=== PATIENT | male | born 1945 | race Caucasian/White ===

== ENCOUNTER 2022-09-21 12:23 | Inpatient (IN) | payer OTHER, MEDICARE, SELFPAY ==
--- NOTE | ~2022-09-21 | XR_ITS ---
EXAMINATION: XR CHEST CLINICAL INFORMATION: Shortness of breath COMPARISON: Chest x-ray on 05/10/2016 TECHNIQUE: 2 views of the chest were obtained. FINDINGS: The cardiac mediastinal silhouette is normal. There is mild chronic interstitial disease. No areas of consolidation. No pleural effusions. XR/XR chest 2V IMPRESSION: No acute disease.
--- NOTE | 2022-09-21 12:33 | ED.SOB ---
HPI - SOB/Dyspnea General Chief Complaint: Upper Respiratory Symptoms <SHYANNE Walls - Last Filed: 09/21/22 12:39> Stated Complaint: diff breathing <SHYANNE Walls - Last Filed: 09/21/22 12:39> Time Seen by Provider: 09/21/22 12:39 <SHYANNE Walls - Last Filed: 09/21/22 12:39> Source: patient <SHYANNE Fuller Last Filed: 09/21/22 14:18> Mode of arrival: ambulatory <SHYANNE Fuller Last Filed: 09/21/22 14:18> Limitations: no limitations <SHYANNE Fuller Last Filed: 09/21/22 14:18> History of Present Illness HPI Narrative: 77 yo male with history of COPD, active smoker, history of AZ in the past who presents to the ER for evaluation of SOB for the last 2 weeks. He states he was seen at Urgent Care on 09/10 where he had an x-ray showed RLL infiltrate for which he was prescribed antibiotics and prednisone. He completed the course and has been using his nebulizer machine at home with no improvement in his SOB. He has a chronically productive cough but it has worsened. Phlegm clear to light yellow. He states his breathing is worse with laying, he has been sleeping in his recliner. No HOPKINS, chest pain, fever, chills, N/V/D or abdominal pain. No known sick contacts. No hx CHF and no LE edema. He just did a neb treatment 1 hour [employer] but still feels SOB. Spo2 90% on room air. <SHYANNE Fuller - Last Filed: 09/21/22 14:18> MD elicited complaint: shortness of breath <SHYANNE Fuller Last Filed: 09/21/22 14:18> Pertinent past history: COPD and pneumonia <SHYANNE Fuller Last Filed: 09/21/22 14:18> Onset (ago): week(s) (2) <SHYANNE Fuller Last Filed: 09/21/22 14:18> Context: recent illness <SHYANNE Fuller Last Filed: 09/21/22 14:18> Timing: progressively worsening <SHYANNE Fuller - Last Filed: 09/21/22 14:18> Severity: moderate <SHYANNE Fuller - Last Filed: 09/21/22 14:18> Exacerbating factors: lying flat <SHYANNE Fuller - Last Filed: 09/21/22 14:18> Relieving factors: rest and bronchodilators <SHYANNE Fuller - Last Filed: 09/21/22 14:18> Known history of: COPD <SHYANNE Fuller - Last Filed: 09/21/22 14:18> Associated symptoms: cough, wheezing, sputum production, orthopnea and chest congestion <SHYANNE Fuller - Last Filed: 09/21/22 14:18> Treatment prior to arrival: bronchodilator <SHYANNE Fuller - Last Filed: 09/21/22 14:18> Related Data Home oxygen amount: none <SHYANNE Fuller - Last Filed: 09/21/22 14:18> Allergies/Adverse Reactions: Allergies Allergy/AdvReac Type Severity Reaction Status Date / Time No Known Allergies Allergy Verified 09/21/22 12:34 [No Known Allergies*] <SHYANNE Walls - Last Filed: 09/21/22 12:39> Review of Systems Review of Systems: Yes all other systems are reviewed and are negative <SHYANNE Fuller - Last Filed: 09/21/22 14:18> [facility] Social History Social History: Social History Advance Directives: No Advance Directives Information Provided: Yes <SHYANNE Walls - Last Filed: 09/21/22 12:39> Physical Exam Vital Signs: Vital Signs: Last Vital Signs Temp 98 F 09/21/22 12:34 Pulse 91 09/21/22 14:09 Resp 20 09/21/22 14:09 BP 142/70 H 09/21/22 14:09 Pulse Ox 92 09/21/22 14:09 O2 Del Method Nasal Cannula 09/21/22 14:09 O2 Flow Rate 2 09/21/22 14:09 BMI result Body Mass Index 23.6 <SHYANNE Walls Last Filed: 09/21/22 12:39> Vital Signs: Last Vital Signs Temp 98 F 09/21/22 12:34 Pulse 91 09/21/22 14:09 Resp 20 09/21/22 14:09 BP 142/70 H 09/21/22 14:09 Pulse Ox 92 09/21/22 14:09 O2 Del Method Nasal Cannula 09/21/22 14:09 O2 Flow Rate 2 09/21/22 14:09 BMI result Body Mass Index 23.6 <SHYANNE Fuller - Last Filed: 09/21/22 14:18> Appearance: Alert. Oriented X3. No acute distress. Head: normocephalic, atraumatic. Eyes: Pupils equal, round and reactive to light. ENT: Pharynx normal. No tonsillar swelling or exudate. Neck: Normal inspection. Neck supple. CVS: Normal heart rate and rhythm. Pulses normal. Respiratory: No respiratory distress. Able to speak in complete sentences. BS diminished at bilateral bases with expiratory wheezes throughout, prolonged expiratory phase. Abdomen: Soft and nontender. +BS x4 Skin: Skin warm and dry. Normal skin color. Normal skin turgor. No rashes. Extremities: No lower extremity edema. No joint swelling. Neuro/psych: Oriented X 3. No motor deficit. No sensory deficit. CN II-XII intact. Normal speech and cognition. <SHYANNE Fuller - Last Filed: 09/21/22 14:18> Course Course Course Narrative: RME: 77yo M w/PMHx COPD, DM, HTN, [place] c/o worsening, SOB, chest tightness x 3 weeks. Was seen at urgent care on 09/10 x-ray showed possible infiltrate to right lower lobe, finished course of Azithromycin & Amoxicillin and Prednisone without relief Inspiratory wheeze and diminished lung sounds bibasilarly. Patient is sating 89-90% on room air, coarse cough noted EKG, labs including lactic/blood cultures, CXR, DuoNebs, IV Solu-Medrol ordered Full HPI, ROS and PE to be performed by primary ED provider. <SHYANNE Walls - Last Filed: 09/21/22 12:39> Reevaluation(s) Reevaluation #1: patient continues to have coughing fits. He is saturating 92-93% on 2 L nasal cannula. He feels the same after 1st breathing treatment. His lung sounds remain diminished at the bases and expiratory wheezes in his middle and upper lung sounds. He is not in any respiratory distress. Will plan for admission for treatment of COPD exacerbation. <SHYANNE Fuller - Last Filed: 09/21/22 14:18> Time: 14:16 <SHYANNE Fuller - Last Filed: 09/21/22 14:18> Medications Administered Generic Name Dose Route Start Last Admin Trade Name Freq PRN Reason Stop Dose Admin Doxycycline Hyclate 100 mg/ 250 mls @ 166.67 mls/hr 09/21/22 13:31 09/21/22 13:44 Sodium Chloride IV 09/21/22 15:00 166.67 mls/hr ONCE ONE Administration Discontinued Medications Generic Name Dose Route Start Last Admin Trade Name Freq PRN Reason Stop Dose Admin Albuterol Sulfate 2.5 mg/ 0 mg 09/21/22 12:35 09/21/22 13:21 Albuterol/Ipratropium 3 ml INHALE 09/21/22 12:36 2.5 each ONCE ONE Administration Guaifenesin 1,200 mg 09/21/22 13:31 09/21/22 13:45 Guaifenesin La 600 Mg Tab.Er.12h PO 09/21/22 13:32 1,200 mg ONCE ONE Administration Methylprednisolone Sodium Succinate 125 mg 09/21/22 12:35 09/21/22 12:58 Methylprednisolone Sod Succ 125 Mg/2 Ml Vial IVPUSH 09/21/22 12:36 125 mg ONCE ONE Administration <SHYANNE Walls - Last Filed: 09/21/22 12:39> Medications Administered Generic Name Dose Route Start Last Admin Trade Name Freq PRN Reason Stop Dose Admin Doxycycline Hyclate 100 mg/ 250 mls @ 166.67 mls/hr 09/21/22 13:31 09/21/22 13:44 Sodium Chloride IV 09/21/22 15:00 166.67 mls/hr ONCE ONE Administration Discontinued Medications Generic Name Dose Route Start Last Admin Trade Name Freq PRN Reason Stop Dose Admin Albuterol Sulfate 2.5 mg/ 0 mg 09/21/22 12:35 09/21/22 13:21 Albuterol/Ipratropium 3 ml INHALE 09/21/22 12:36 2.5 each ONCE ONE Administration Guaifenesin 1,200 mg 09/21/22 13:31 09/21/22 13:45 Guaifenesin [place] 600 Mg Tab.Er.12h PO 09/21/22 13:32 1,200 mg ONCE ONE Administration Methylprednisolone Sodium Succinate 125 mg 09/21/22 12:35 09/21/22 12:58 Methylprednisolone Sod Succ 125 Mg/2 Ml Vial IVPUSH 09/21/22 12:36 125 mg ONCE ONE Administration <SHYANNE Fuller Last Filed: 09/21/22 14:18> Medical Decision Making Medical Decision Making MDM Narrative: 77-year-old male with history of COPD, active smoker, not on oxygen, 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 He is hypoxic to 90% on arrival but in no respiratory distress. He has diffuse wheezing with diminished breath sounds at the bases. concern for outpatient failure when will require admission. chest x-ray does not show any evidence of pneumonia. He does have a leukocytosis of 15.6 but has been on prednisone lately. He is lactic acid is normal. He is not febrile or tachycardic. He is being treated for acute COPD exacerbation with doxycycline, mucolytics, bronchodilators. He is saturating 92% on 2 L nasal cannula. Will plan for admission. Patient updated on plan of care and agrees. <SHYANNE Fuller - Last Filed: 09/21/22 14:18> Differential Diagnosis Differential Diagnoses: The differential diagnosis associated with the presentation includes <SHYANNE Fuller Last Filed: 09/21/22 14:18> acute COPD exacerbation, acute CHF exacerbation, acute bronchitis, CAP, aspiration pneumonia, less likely PE or ACS <SHYANNE Fuller Last Filed: 09/21/22 14:18> Admission/Observation Consideration of admission/observation: Escalation of care including admission/observation considered <SHYANNE Fuller Last Filed: 09/21/22 14:18> failed outpatient tx <SHYANNE Fuller Last Filed: 09/21/22 14:18> Consult Healthcare Provider Management of the patient was discussed with: Hospitalist <SHYANNE Fuller Last Filed: 09/21/22 14:18> Lab Data [facility] Lab Attestation statement: I reviewed the patient's lab results. <SHYANNE Fuller - Last Filed: 09/21/22 14:18> Leukocytosis, mild hyponatremia <SHYANNE Fuller - Last Filed: 09/21/22 14:18> Result Diagrams: 09/21/22 12:52 09/21/22 12:52 <SHYANNE Walls - Last Filed: 09/21/22 12:39> Labs: Lab Results 09/21/22 09/21/22 09/21/22 Range/Units 12:52 12:52 12:52 WBC 15.6 H (4.8-10.8) X10*3/uL RBC 5.02 (4.60-5.80) X10*6/uL Hgb 16.1 (14.0-18.0) g/dl Hct 48.0 (42.0-52.0) % MCV 95.6 (80.0-98.0) fL MCH 32.1 (27.0-33.0) pg MCHC 33.5 (31.0-36.0) g/dl RDW 13.3 (11.0-16.0) % Plt Count 396 (160-400) X10*3/uL MPV 8.5 L (9.4-12.4) fL Immature Gran % (Auto) 0.7 H (0.0-0.4) % Neut % (Auto) 74.6 H (45-73) % Lymph % (Auto) 14.9 L (20-40) % [place] % (Auto) 6.0 (2-11) % Eos % (Auto) 3.4 (0-4) % Baso % (Auto) 0.4 (0-2) % Lymph # (Auto) 2.3 (1.2-4.9) X10*3/uL [place] # (Auto) 0.9 (0.1-1.2) X10*3/uL Eos # (Auto) 0.5 H (0.0-0.4) X10*3/uL Baso # (Auto) 0.1 (0.0-0.2) X10*3/uL Abs Immat Gran (auto) 0.11 H (0.00-0.03) X10*3/uL Absolute Neuts (auto) 11.6 H (2.0-8.3) x10*3/uL Absolute Nucleated RBC 0.000 (0.0-0.012) X10*3/uL Nucleated RBC % (auto) 0.0 (0.0-0.2) /100WBC PT (10.0-13.1) SEC INR (0.9-1.1) Sodium 131 L (135-145) mmol/L Potassium 5.0 (3.3-5.1) mmol/L Chloride 94 L (96-108) mmol/L Carbon Dioxide 27 (22-29) mmol/L Anion Gap 15 (12-20) BUN 8 L (9-16) mg/dL Creatinine 0.96 (0.5-1.4) mg/dL Estim Creat Clear Calc 62.3 Estimated GFR > 60 Random Glucose 180 H (60-115) mg/dL Lactic Acid 1.9 (0.5-2.0) mmol/L Calcium 9.7 (8.4-10.2) mg/dL Total Bilirubin 0.6 (0.0-1.0) mg/dL Direct Bilirubin 0.2 (0.0-0.5) mg/dL AST 19 (5-37) U/L ALT 34 (0-40) U/L Alkaline Phosphatase 98 (39-117) U/L Troponin I High Sens (<3.5-35.0) ng/L B-Natriuretic Peptide (<100) pg/mL Total Protein 7.6 (6.5-8.0) g/dL Albumin 5.0 (3.5-5.0) g/dL 09/21/22 09/21/22 09/21/22 Range/Units 12:52 12:52 13:01 WBC (4.8-10.8) X10*3/uL RBC (4.60-5.80) X10*6/uL Hgb (14.0-18.0) g/dl Hct (42.0-52.0) % MCV (80.0-98.0) fL MCH (27.0-33.0) pg MCHC (31.0-36.0) g/dl RDW (11.0-16.0) % Plt Count (160-400) X10*3/uL MPV (9.4-12.4) fL Immature Gran % (Auto) (0.0-0.4) % Neut % (Auto) (45-73) % Lymph % (Auto) (20-40) % [place] % (Auto) (2-11) % Eos % (Auto) (0-4) % Baso % (Auto) (0-2) % Lymph # (Auto) (1.2-4.9) X10*3/uL [place] # (Auto) (0.1-1.2) X10*3/uL Eos # (Auto) (0.0-0.4) X10*3/uL Baso # (Auto) (0.0-0.2) X10*3/uL Abs Immat Gran (auto) (0.00-0.03) X10*3/uL Absolute Neuts (auto) (2.0-8.3) x10*3/uL Absolute Nucleated RBC (0.0-0.012) X10*3/uL Nucleated RBC % (auto) (0.0-0.2) /100WBC PT 12.0 (10.0-13.1) SEC INR 1.0 (0.9-1.1) Sodium (135-145) mmol/L Potassium (3.3-5.1) mmol/L Chloride (96-108) mmol/L Carbon Dioxide (22-29) mmol/L Anion Gap (12-20) BUN (9-16) mg/dL Creatinine (0.5-1.4) mg/dL Estim Creat Clear Calc Estimated GFR Random Glucose (60-115) mg/dL Lactic Acid (0.5-2.0) mmol/L Calcium (8.4-10.2) mg/dL Total Bilirubin (0.0-1.0) mg/dL Direct Bilirubin (0.0-0.5) mg/dL AST (5-37) U/L ALT (0-40) U/L Alkaline Phosphatase (39-117) U/L Troponin I High Sens 6.0 (<3.5-35.0) ng/L B-Natriuretic Peptide 21 (<100) pg/mL Total Protein (6.5-8.0) g/dL Albumin (3.5-5.0) g/dL <SHYANNE Walls - Last Filed: 09/21/22 12:39> Lab Results 09/21/22 09/21/22 09/21/22 Range/Units 12:52 12:52 12:52 WBC 15.6 H (4.8-10.8) X10*3/uL RBC 5.02 (4.60-5.80) X10*6/uL Hgb 16.1 (14.0-18.0) g/dl Hct 48.0 (42.0-52.0) % MCV 95.6 (80.0-98.0) fL MCH 32.1 (27.0-33.0) pg MCHC 33.5 (31.0-36.0) g/dl RDW 13.3 (11.0-16.0) % Plt Count 396 (160-400) X10*3/uL MPV 8.5 L (9.4-12.4) fL Immature Gran % (Auto) 0.7 H (0.0-0.4) % Neut % (Auto) 74.6 H (45-73) % Lymph % (Auto) 14.9 L (20-40) % [place] % (Auto) 6.0 (2-11) % Eos % (Auto) 3.4 (0-4) % Baso % (Auto) 0.4 (0-2) % Lymph # (Auto) 2.3 (1.2-4.9) X10*3/uL [place] # (Auto) 0.9 (0.1-1.2) X10*3/uL Eos # (Auto) 0.5 H (0.0-0.4) X10*3/uL Baso # (Auto) 0.1 (0.0-0.2) X10*3/uL Abs Immat Gran (auto) 0.11 H (0.00-0.03) X10*3/uL Absolute Neuts (auto) 11.6 H (2.0-8.3) x10*3/uL Absolute Nucleated RBC 0.000 (0.0-0.012) X10*3/uL Nucleated RBC % (auto) 0.0 (0.0-0.2) /100WBC PT (10.0-13.1) SEC INR (0.9-1.1) Sodium 131 L (135-145) mmol/L Potassium 5.0 (3.3-5.1) mmol/L Chloride 94 L (96-108) mmol/L Carbon Dioxide 27 (22-29) mmol/L Anion Gap 15 (12-20) BUN 8 L (9-16) mg/dL Creatinine 0.96 (0.5-1.4) mg/dL Estim Creat Clear Calc 62.3 Estimated GFR > 60 Random Glucose 180 H (60-115) mg/dL Lactic Acid 1.9 (0.5-2.0) mmol/L Calcium 9.7 (8.4-10.2) mg/dL Total Bilirubin 0.6 (0.0-1.0) mg/dL Direct Bilirubin 0.2 (0.0-0.5) mg/dL AST 19 (5-37) U/L ALT 34 (0-40) U/L Alkaline Phosphatase 98 (39-117) U/L Troponin I High Sens (<3.5-35.0) ng/L B-Natriuretic Peptide (<100) pg/mL Total Protein 7.6 (6.5-8.0) g/dL Albumin 5.0 (3.5-5.0) g/dL 09/21/22 09/21/22 09/21/22 Range/Units 12:52 12:52 13:01 WBC (4.8-10.8) X10*3/uL RBC (4.60-5.80) X10*6/uL Hgb (14.0-18.0) g/dl Hct (42.0-52.0) % MCV (80.0-98.0) fL MCH (27.0-33.0) pg MCHC (31.0-36.0) g/dl RDW (11.0-16.0) % Plt Count (160-400) X10*3/uL MPV (9.4-12.4) fL Immature Gran % (Auto) (0.0-0.4) % Neut % (Auto) (45-73) % Lymph % (Auto) (20-40) % [place] % (Auto) (2-11) % Eos % (Auto) (0-4) % Baso % (Auto) (0-2) % Lymph # (Auto) (1.2-4.9) X10*3/uL [place] # (Auto) (0.1-1.2) X10*3/uL Eos # (Auto) (0.0-0.4) X10*3/uL Baso # (Auto) (0.0-0.2) X10*3/uL Abs Immat Gran (auto) (0.00-0.03) X10*3/uL Absolute Neuts (auto) (2.0-8.3) x10*3/uL Absolute Nucleated RBC (0.0-0.012) X10*3/uL Nucleated RBC % (auto) (0.0-0.2) /100WBC PT 12.0 (10.0-13.1) SEC INR 1.0 (0.9-1.1) Sodium (135-145) mmol/L Potassium (3.3-5.1) mmol/L Chloride (96-108) mmol/L Carbon Dioxide (22-29) mmol/L Anion Gap (12-20) BUN (9-16) mg/dL Creatinine (0.5-1.4) mg/dL Estim Creat Clear Calc Estimated GFR Random Glucose (60-115) mg/dL Lactic Acid (0.5-2.0) mmol/L Calcium (8.4-10.2) mg/dL Total Bilirubin (0.0-1.0) mg/dL Direct Bilirubin (0.0-0.5) mg/dL AST (5-37) U/L ALT (0-40) U/L Alkaline Phosphatase (39-117) U/L Troponin I High Sens 6.0 (<3.5-35.0) ng/L B-Natriuretic Peptide 21 (<100) pg/mL Total Protein (6.5-8.0) g/dL Albumin (3.5-5.0) g/dL <SHYANNE Fuller - Last Filed: 09/21/22 14:18> Independent Interpretation I performed an independent interpretation of an: EKG and Plain X-Ray <SHYANNE Fuller - Last Filed: 09/21/22 14:18> Interpretation: CXR reviewed - no infiltrate, agree w/ radiology read EKG - Normal sinus rhythm, ventricular rate 81 beats per minute, normal CT interval, right bundle-branch block, t-wave inversions in V1-V3, no ST segment elevations or depressions. No change from prior in 2016. <SHYANNE Fuller - Last Filed: 09/21/22 14:18> Radiology Impression Discussion of test interpretation with radiology: I have reviewed the radiologist's reading. <SHYANNE Fuller - Last Filed: 09/21/22 14:18> Radiologist Impression: EXAMINATION: XR CHEST CLINICAL INFORMATION: Shortness of breath COMPARISON: Chest x-ray on 05/10/2016 TECHNIQUE: 2 views of the chest were obtained. FINDINGS: The cardiac mediastinal silhouette is normal. There is mild chronic interstitial disease. No areas of consolidation. No pleural effusions. XR/XR chest 2V IMPRESSION: No acute disease. <SHYANNE Fuller - Last Filed: 09/21/22 14:18> External Record Review External record reviewed: Outpatient record, Prior outpatient labs and Prior outpatient radiology <SHYANNE Fuller - Last Filed: 09/21/22 14:18> Prescription Management I considered prescription management with: Antibiotic <SHYANNE Fuller - Last Filed: 09/21/22 14:18> Chronic Conditions Patient?s care impacted by: Other (COPD, active smokr) <SHYANNE Fuller - Last Filed: 09/21/22 14:18> Social Determinants Patient?s care significantly limited by Social Determinants of Health including: Other Social Determinant of Health (active cigarette smoker) <SHYANNE Fuller - Last Filed: 09/21/22 14:18> Critical Care Time Critical Care Time Critical Care Time: Yes <SHYANNE Fuller - Last Filed: 09/21/22 14:18> Total Critical Care Time: 38 <SHYANNE Fuller - Last Filed: 09/21/22 14:18> Attestation: I have personally provided critical care time exclusive of time spent on separately billable procedures. Time includes review of lab data, radiology results, discussion with consultants, and monitoring for potential decompensation. Intervention performed as documented. <SHYANNE Fuller - Last Filed: 09/21/22 14:18> Discharge Plan Discharge Patient Disposition: Admitted As Inpatient <SHYANNE Walls - Last Filed: 09/21/22 12:39>
[2022-09-21 12:34] VITALS: BP 128/64; PULSE 96; RESP 20; TEMP 36.6; O2SAT 90; BMI 23.6
--- NOTE | 2022-09-21 12:35 | ECG_ITS ---
Test Reason : sob Blood Pressure : / mmHG Vent. Rate : 081 BPM Atrial Rate : 081 BPM P-R Int : 156 ms QRS Dur : 122 ms QT Int : 378 ms P-R-T Axes : 058 -43 056 degrees QTc Int : 439 ms Normal sinus rhythm Left axis deviation Right bundle branch block Inferior infarct (cited on or before 10-MAY-2016) Abnormal ECG When compared with ECG of 10-MAY-2016 20:18, No significant change was found Referred By: Susanna Oconnell Electronically Signed By:WILL KYLE
[2022-09-21 12:58] LABS: MANUAL DIFF FLAG NO
[2022-09-21] MEDS: methylPREDNISolone Sod Succ 125 MG/2 ML VIAL IVPUSH (12:58)
[2022-09-21 13:00] LABS: Basophils Absolute Auto 0.1 X10*3/uL (0.0-0.2); Basophils Percent Auto 0.4 % (0-2); Eosinophils Absolute Auto 0.5 X10*3/uL (0.0-0.4); Eosinophils Percent Auto 3.4 % (0-4); Hemoglobin 16.1 g/dl (14.0-18.0); Imm Gran Abs Auto 0.11 X10*3/uL (0.00-0.03); Imm Gran Pct Auto 0.7 % (0.0-0.4); Lymphocytes Absolute Auto 2.3 X10*3/uL (1.2-4.9); Lymphocytes Percent Auto 14.9 % (20-40); Mean Corpuscular HGB Conc 33.5 g/dl (31.0-36.0); Mean Corpuscular Hemoglobin 32.1 pg (27.0-33.0); Mean Corpuscular Volume 95.6 fL (80.0-98.0); Mean Platelet Volume 8.5 fL (9.4-12.4); Monocytes Absolute Auto 0.9 X10*3/uL (0.1-1.2); Neutrophils Absolute Auto 11.6 x10*3/uL (2.0-8.3); Neutrophils Percent Auto 74.6 % (45-73); Platelet Count 396 X10*3/uL (160-400); Red Blood Count 5.02 X10*6/uL (4.60-5.80); Red Cell Distribution Width 13.3 % (11.0-16.0); White Blood Count 15.6 X10*3/uL (4.8-10.8)
[2022-09-21 13:09] LABS: Lactic Acid 1.9 mmol/L (0.5-2.0)
[2022-09-21 13:14] LABS: Alanine Aminotransferase 34 U/L (0-40); Alkaline Phosphatase 98 U/L (39-117); Anion Gap 15 (12-20); Aspartate Amino Transferase 19 U/L (5-37); Bilirubin Direct 0.2 mg/dL (0.0-0.5); Bilirubin Total 0.6 mg/dL (0.0-1.0); Blood Urea Nitrogen 8 mg/dL (9-16); Calcium 9.7 mg/dL (8.4-10.2); Carbon Dioxide 27 mmol/L (22-29); Chloride 94 mmol/L (96-108); Creatinine Clr Calc Pharmacy 62.3; Estimated Glomerular Filt Rate > 60; Glucose Random 180 mg/dL (60-115); Sodium 131 mmol/L (135-145); Total Protein 7.6 g/dL (6.5-8.0)
[2022-09-21 13:19] LABS: B Type Natriuretic Peptide 21 pg/mL (<100)
[2022-09-21] MEDS: Doxycycline Hyclate 100 MG in 0.9 % Sodium Chloride 250 ML 166.67 MG IV (13:44)
[2022-09-21] MEDS: guaiFENesin LA 600 MG TAB.ER.12H 1200 MG PO (13:45)
[2022-09-21 14:09] VITALS: BP 142/70; PULSE 91; RESP 20; O2SAT 92
[2022-09-21] MEDS: 0.9 % Sodium Chloride 1,000 ML 999 ML IVCONT (14:17)
--- NOTE | 2022-09-21 14:35 | P.HPHOSP_ITS ---
History of Present Illness Date of Service: 09/21/22 Chief Complaint: SOB A 77 years old male with PMH of CAD, COPD, HLD, smoking, DM among others who presents to the hospital with Dyspnea for over a week. The patient report being evaluated at urgent care as he was prescribed steroids and antbiotics with no response as he was coughing and having difficulties breathig with wheezes and SOB. no chest pain, palpitations, LOC, change in bowel habit or urinary symptoms. reports smoking 1 pack a day for 60 years now. In ED found to have O2 of 90% on RA. treated for COPD exacerbation and admitted for further management. Review of Systems Review of Systems: No fever, chills or weakness No chest pain, palpitation having shortness of breath and productive coughing No abdominal pain, nausea or vomiting No urinary symptoms No any rash or wounds [facility] Medical History (Updated 09/21/22 @ 14:40 by Geovanny Green MD) Diabetes mellitus HLD (hyperlipidemia) Social History Advance Directives: No Advance Directives Information Provided: Yes Meds Allergies Allergy/AdvReac Type Severity Reaction Status Date / Time No Known Allergies Allergy Verified 09/21/22 12:34 [No Known Allergies*] Active Medications: Current Medications Acetaminophen (Acetaminophen 325 Mg Tablet) 650 mg PO Q6H PRN PRN Reason: Pain, Mild (Pain Scale 1-3) Albuterol Sulfate (Albuterol Sulfate (0.083%) 2.5 Mg/3 Ml Vial.Neb) 2.5 mg INHALE Q4H PRN PRN Reason: Shortness of Breath/Wheezing Albuterol/Ipratropium (Albuterol/Iprat 2.5/0.5mg 3 Ml Ampul.Neb) 3 ml INHALE RQ4H WHILE AWAKE SUSY Doxycycline Monohydrate (Doxycycline Monohydrate 100 Mg Capsule) 100 mg PO Q12H SUSY Enoxaparin Sodium (Enoxaparin Sodium 40 Mg/0.4 Ml Syringe) 40 mg SUBCUT Q24H SUSY Doxycycline Hyclate 100 mg/ (Sodium Chloride) 250 mls @ 166.67 mls/hr IV ONCE ONE Stop: 09/21/22 15:00 Last Admin: 09/21/22 13:44 Dose: 166.67 mls/hr Sodium Chloride (Ns) 1,000 mls @ 999 mls/hr IVCONT .Q1H1M [facility] Stop: 09/21/22 15:15 Last Admin: 09/21/22 14:17 Dose: 999 mls/hr Methylprednisolone Sodium Succinate (Methylprednisolone Sod Succ 40 Mg/Ml Vial) 40 mg IVPUSH Q12H [facility] Pharmacy Consult (Consult Rx Perform Med Rec) 1 each MISCELLANE ONCE PRN PRN Reason: Consult order Sodium Chloride (0.9 % Sodium Chloride Flush 3 Ml Syringe) 3 ml IVFLUSH QSHIFT [facility] Physical Exam Vital Signs and Narrative: Vital Signs: Last Vital Signs Temp 98 F 09/21/22 12:34 Pulse 91 09/21/22 14:09 Resp 20 09/21/22 14:09 BP 142/70 H 09/21/22 14:09 Pulse Ox 92 09/21/22 14:09 O2 Del Method Nasal Cannula 09/21/22 14:09 O2 Flow Rate 2 09/21/22 14:09 BMI result Body Mass Index 23.6 Const: Other: Constitutional : Awake, interactive, not in distress Neck : Normal inspection, Supple Cardiovascular : RRR, no JVP, no lower extremity edema Respiratory : fair bilateral air entry, bilateral scattered wheezes. Gastrointestinal: soft, lax, Normal bowel sounds, Non tender Skin : Warm, Dry Neurological : Alert & oriented x3, No focal deficit Results Labs 09/21/22 12:52 09/21/22 12:52 Labs: Laboratory Results - last 24 hr 09/21/22 09/21/22 09/21/22 12:52 12:52 12:52 MCV 95.6 MCH 32.1 MCHC 33.5 RDW 13.3 Plt Count 396 MPV 8.5 L Immature Gran % (Auto) 0.7 H Neut % (Auto) 74.6 H Lymph % (Auto) 14.9 L [place] % (Auto) 6.0 Eos % (Auto) 3.4 Baso % (Auto) 0.4 Lymph # (Auto) 2.3 [place] # (Auto) 0.9 Eos # (Auto) 0.5 H Baso # (Auto) 0.1 Abs Immat Gran (auto) 0.11 H Absolute Neuts (auto) 11.6 H Absolute Nucleated RBC 0.000 Nucleated RBC % (auto) 0.0 PT INR Anion Gap 15 Estim Creat Clear Calc 62.3 Estimated GFR > 60 Random Glucose 180 H Lactic Acid 1.9 Calcium 9.7 Total Bilirubin 0.6 Direct Bilirubin 0.2 AST 19 ALT 34 Alkaline Phosphatase 98 Troponin I High Sens B-Natriuretic Peptide Total Protein 7.6 Albumin 5.0 09/21/22 09/21/22 09/21/22 12:52 12:52 13:01 MCV MCH MCHC RDW Plt Count MPV Immature Gran % (Auto) Neut % (Auto) Lymph % (Auto) [place] % (Auto) Eos % (Auto) Baso % (Auto) Lymph # (Auto) [place] # (Auto) Eos # (Auto) Baso # (Auto) Abs Immat Gran (auto) Absolute Neuts (auto) Absolute Nucleated RBC Nucleated RBC % (auto) PT 12.0 INR 1.0 Anion Gap Estim Creat Clear Calc Estimated GFR Random Glucose Lactic Acid Calcium Total Bilirubin Direct Bilirubin AST ALT Alkaline Phosphatase Troponin I High Sens 6.0 B-Natriuretic Peptide 21 Total Protein Albumin Imaging Radiologist's Impressions: Impressions Chest X-Ray 09/21/22 13:10 IMPRESSION: No acute disease. Assessment and Plan (1) COPD with acute exacerbation: Status: Acute Plan A 77 years old male with PMH of CAD, COPD, HLD, smoking, DM among others who presents to the hospital with Dyspnea for over a week. COPD exacerbation advised to quit smoking Steroids Duonebs O2 supplement cough medicine as needed DM II SSI, diabetic diet Hx CAD Plavix and MEtoprolol DVT PPx Lovenox Time Spent With Patient Time: Total time managing care of this patient today ____ minutes. Quality Stroke Does the patient have a stroke diagnosis?: No VTE Prior VTE?: No VTE Risk Level:: Medical - moderate - high VTE Device Contraindication: Treatment Not Indicated VTE Drug Contraindication: N/A - Med Ordered
--- NOTE | 2022-09-21 15:11 | PC.NURSE ---
placed on 2L nasal cannula for SPO2 in the mid to high 80s. SPO2 low 90s on supplemental oxygen. patient is able to make needs known. call chapin placed within reach
--- NOTE | 2022-09-21 15:43 | PHA.MEDREC ---
Pharmacy Consult ? Medication Reconciliation Pharmacy has completed the medication reconciliation. Spoke to patient to confirm meds.
[2022-09-21] MEDS: Albuterol/Iprat 2.5/0.5MG 3 ML AMPUL.NEB INHALE ×2 (15:46→18:58)
[2022-09-21 15:47] VITALS: PULSE 86; RESP 16; O2SAT 88
[2022-09-21 16:00] VITALS: BP 143/76; PULSE 90; RESP 18; TEMP 36.9; O2SAT 94
[2022-09-21] MEDS: Enoxaparin Sodium 40 MG/0.4 ML SYRINGE SUBCUT (16:18)
[2022-09-21] MEDS: 0.9 % Sodium Chloride Flush 3 ML SYRINGE IVFLUSH ×2 (16:18→23:52)
[2022-09-21 17:33] LABS: Glucose, Whole Blood 185 mg/dL (60-115)
[2022-09-21] MEDS: Insulin Lispro 100 UNIT/ML 3 ML VIAL SUBCUT ×2 (18:08→20:39)
[2022-09-21 18:58] VITALS: PULSE 100; RESP 18; O2SAT 86
[2022-09-21 20:14] LABS: Glucose, Whole Blood 207 mg/dL (60-115)
[2022-09-21] MEDS: Metoprolol Tartrate 50 MG TABLET PO (20:39)
[2022-09-21] MEDS: Atorvastatin Calcium 80 MG TABLET PO (20:40)
[2022-09-21 23:57] VITALS: BP 112/59; PULSE 74; RESP 18; TEMP 36.4; O2SAT 92
[2022-09-22 07:35] VITALS: BP 129/68; PULSE 80; RESP 20; TEMP 36.3; O2SAT 92
[2022-09-22 07:37] LABS: Glucose, Whole Blood 130 mg/dL (60-115)
[2022-09-22 07:47] VITALS: PULSE 84; RESP 20; O2SAT 99
[2022-09-22] MEDS: Albuterol/Iprat 2.5/0.5MG 3 ML AMPUL.NEB INHALE ×2 (07:47→11:44)
[2022-09-22] MEDS: Metoprolol Tartrate 50 MG TABLET PO (09:30)
[2022-09-22] MEDS: Aspirin Enteric Coated 81 MG TABLET.DR PO (09:30)
[2022-09-22] MEDS: Doxycycline Monohydrate 100 MG CAPSULE PO (09:30)
[2022-09-22] MEDS: Clopidogrel Bisulfate 75 MG TABLET PO (09:30)
[2022-09-22] MEDS: methylPREDNISolone Sod Succ 40 MG/ML VIAL IVPUSH (09:31)
[2022-09-22] MEDS: 0.9 % Sodium Chloride Flush 3 ML SYRINGE IVFLUSH (09:31)
--- NOTE | 2022-09-22 10:33 | MHC.CM.PN ---
PATIENT LIVES WITH HIS DAUGHTER/HCP AND GRANDSON. NO DME OR [facility] SERVICES COPY OF HCP REQUESTED. NO HOME O2 AND HOPES TO DC HOME WITHOUT THE NEED FOR BROTHER WILL PROVIDE TRANSPORT HOME WHEN DC COMES. PCP IS SYEDA DONNELLY OF [facility] IMM 09/22 IN CHART
[2022-09-22 11:12] LABS: Glucose, Whole Blood 224 mg/dL (60-115)
--- NOTE | 2022-09-22 11:25 | P.DS_ITS ---
DS: Providers Provider Date of Service: 09/22/22 Date of admission: 09/21/22 14:30 Primary care physician: Unknown Physician DS: Diagnosis Discharge Diagnosis (1) COPD with acute exacerbation: Status: Acute (2) Hyponatremia: Status: Acute DS: Summary Hospital Course Hospital Course: Admission note HPI A 77 years old male with PMH of CAD, COPD, HLD, smoking, DM among others who presents to the hospital with Dyspnea for over a week. The patient report being evaluated at urgent care as he was prescribed steroids and antbiotics with no response as he was coughing and having difficulties breathig with wheezes and SOB. no chest pain, palpitations, LOC, change in bowel habit or urinary symptoms. reports smoking 1 pack a day for 60 years now. In ED found to have O2 of 90% on RA. treated for COPD exacerbation and admitted for further management. Hospital course admitted with acute COPD exacerbation. treated with steroids IV, duonebs, O2 supplement and cough medicine with good response over the course of hospital stay as he was able to ambulate on room air maintaining his O2 level above 90 with no reported dyspnea. advised to quit smoking completely which he agrees to. Noted to have mild hyponatremia of 131, received IV fluids. Continue prednisone and Doxycycline as prescribed Mucinex for cough Avoid smoking Continue home inhalors Time Spent with Patient Time attestation: Total time managing care of this patient today ____ minutes. Discharge coordination time: Less than 30 minutes Quality: Safe Use of Opioids Does Pt have an Active Cancer Diagnosis on the Problem List?: No Quality: Stroke Does the patient have a stroke diagnosis?: No Physical Exam Vital Signs: Vital Signs: Last Vital Signs Temp 97.4 F 09/22/22 07:35 Pulse 84 09/22/22 07:47 Resp 20 09/22/22 07:47 BP 129/68 09/22/22 07:35 Pulse Ox 92 09/22/22 07:35 O2 Del Method Nasal Cannula 09/22/22 07:35 O2 Flow Rate 2 09/22/22 07:35 BMI result Body Mass Index 23.6 Const: Other: Constitutional : Awake, interactive, not in distress Neck : Normal inspection, Supple Cardiovascular : RRR, no JVP, no lower extremity edema Respiratory : fair bilateral air entry, no crackles, scattered wheezes bilaterally Gastrointestinal: soft, lax, Normal bowel sounds, Non tender Skin : Warm, Dry Neurological : Alert & oriented x3, No focal deficit DS: Data Data Completed and Pending Labs on day of discharge: Laboratory Results - last 24 hr 09/21/22 09/21/22 09/21/22 12:52 12:52 12:52 WBC 15.6 H RBC 5.02 Hgb 16.1 Hct 48.0 MCV 95.6 MCH 32.1 MCHC 33.5 RDW 13.3 Plt Count 396 MPV 8.5 L Immature Gran % (Auto) 0.7 H Neut % (Auto) 74.6 H Lymph % (Auto) 14.9 L [place]berson % (Auto) 6.0 Eos % (Auto) 3.4 Baso % (Auto) 0.4 Lymph # (Auto) 2.3 [place] # (Auto) 0.9 Eos # (Auto) 0.5 H Baso # (Auto) 0.1 Abs Immat Gran (auto) 0.11 H Absolute Neuts (auto) 11.6 H Absolute Nucleated RBC 0.000 Nucleated RBC % (auto) 0.0 PT INR Sodium 131 L Potassium 5.0 Chloride 94 L Carbon Dioxide 27 Anion Gap 15 BUN 8 L Creatinine 0.96 Estim Creat Clear Calc 62.3 Estimated GFR > 60 POC Glucose Random Glucose 180 H Lactic Acid 1.9 Calcium 9.7 Total Bilirubin 0.6 Direct Bilirubin 0.2 AST 19 ALT 34 Alkaline Phosphatase 98 Troponin I High Sens B-Natriuretic Peptide Total Protein 7.6 Albumin 5.0 09/21/22 09/21/22 09/21/22 12:52 12:52 13:01 WBC RBC Hgb Hct MCV MCH MCHC RDW Plt Count MPV Immature Gran % (Auto) Neut % (Auto) Lymph % (Auto) [place]bers[place] % (Auto) Eos % (Auto) Baso % (Auto) Lymph # (Auto) [place]bers[place] # (Auto) Eos # (Auto) Baso # (Auto) Abs Immat Gran (auto) Absolute Neuts (auto) Absolute Nucleated RBC Nucleated RBC % (auto) PT 12.0 INR 1.0 Sodium Potassium Chloride Carbon Dioxide Anion Gap BUN Creatinine Estim Creat Clear Calc Estimated GFR POC Glucose Random Glucose Lactic Acid Calcium Total Bilirubin Direct Bilirubin AST ALT Alkaline Phosphatase Troponin I High Sens 6.0 B-Natriuretic Peptide 21 Total Protein Albumin 09/21/22 09/21/22 09/22/22 17:30 20:05 07:33 WBC RBC Hgb Hct MCV MCH MCHC RDW Plt Count MPV Immature Gran % (Auto) Neut % (Auto) Lymph % (Auto) [place]bers[place] % (Auto) Eos % (Auto) Baso % (Auto) Lymph # (Auto) [place] # (Auto) Eos # (Auto) Baso # (Auto) Abs Immat Gran (auto) Absolute Neuts (auto) Absolute Nucleated RBC Nucleated RBC % (auto) PT INR Sodium Potassium Chloride Carbon Dioxide Anion Gap BUN Creatinine Estim Creat Clear Calc Estimated GFR POC Glucose 185 H 207 H 130 H Random Glucose Lactic Acid Calcium Total Bilirubin Direct Bilirubin AST ALT Alkaline Phosphatase Troponin I High Sens B-Natriuretic Peptide Total Protein Albumin 09/22/22 11:04 WBC RBC Hgb Hct MCV MCH MCHC RDW Plt Count MPV Immature Gran % (Auto) Neut % (Auto) Lymph % (Auto) [place]bers[place] % (Auto) Eos % (Auto) Baso % (Auto) Lymph # (Auto) [place] # (Auto) Eos # (Auto) Baso # (Auto) Abs Immat Gran (auto) Absolute Neuts (auto) Absolute Nucleated RBC Nucleated RBC % (auto) PT INR Sodium Potassium Chloride Carbon Dioxide Anion Gap BUN Creatinine Estim Creat Clear Calc Estimated GFR POC Glucose 224 H Random Glucose Lactic Acid Calcium Total Bilirubin Direct Bilirubin AST ALT Alkaline Phosphatase Troponin I High Sens B-Natriuretic Peptide Total Protein Albumin Imaging Chest x-ray: Radiologist's impression: ITS Impressions Chest X-Ray 09/21/22 13:10 IMPRESSION: No acute disease. Discharge Plan Discharge Anticipated Discharge Date/Time: 09/22/22 11:21 Patient Disposition: Home, Self-Care Discharge Diagnosis: COPD Exacerbation Referrals: Rico Figueredo PA [Physician Industrial Electrician] - 1 Week Discharge Medications: New doxycycline monohydrate 100 mg Capsule 100 mg PO Q12H Qty: 8 0RF prednisone 20 mg tablet 40 mg PO DAILY Qty: 8 0RF guaifenesin [Mucinex] 600 mg tablet extended release 12hr 600 mg PO BID Qty: 14 0RF Continued multivitamin Tablet 1 tab PO DAILY atorvastatin 80 mg tablet 80 mg PO DAILY clopidogrel 75 mg tablet 75 mg PO DAILY aspirin 81 mg Tablet,Delayed Release (Dr/Ec) 81 mg PO DAILY metoprolol tartrate 50 mg tablet 50 mg PO BID metformin 500 mg tablet extended release 24 hr 500 mg PO BID lisinopril 2.5 mg tablet 2.5 mg PO DAILY Trelegy Ellipta 100-62.5-25 mcg blister with device 1 ea inhalation DAILY Discharge Orders: Discharge Order (Routine); Ordered 09/22/22 Ordered By: Geovanny Green Diet: Advance to usual diet Activity on Discharge: As tolerated Stand Alone Forms: Patient Portal Discharge page Care Plan Goals: Read below Health Concerns: Read below Plan of Treatment: Read below Assessment: You were admitted to the hospital for evaluation of COPD exacerbation. responded well to treatment with steroids, antibiotics and oxygen. Continue prednisone and Doxycycline as prescribed Mucinex for cough Avoid smoking Continue home inhalors
--- NOTE | 2022-09-22 11:31 | MHC.CM.PN ---
pt dcd home no services are needed
== END 2022-09-22 12:22 | disposition home or self-care (01) | DRG 191 ==
LOC: HO.ED 14:09 → HO.EDOVER 14:40 → HO.S3 16:05
PROVIDERS: Physician Assistant; Admitting Provider Student in an Organized Health Care Education/Training Program; Emergency Provider Emergency Medicine; PCP Physician Assistant Medical; Visit Provider Student in an Organized Health Care Education/Training Program
DX: J44.1 Chronic obstructive pulmonary disease with (acute) exacerbation (principal); E87.1 Hypo-osmolality and hyponatremia; E11.9 Type 2 diabetes mellitus without complications; E78.5 Hyperlipidemia, unspecified; I25.10 Atherosclerotic heart disease of native coronary artery without angina pectoris; F17.210 Nicotine dependence, cigarettes, uncomplicated; I25.2 Old myocardial infarction; Z71.6 Tobacco abuse counseling; Z79.02 Long term (current) use of antithrombotics/antiplatelets; Z79.82 Long term (current) use of aspirin; Z79.84 Long term (current) use of oral hypoglycemic drugs; Z79.899 Other long term (current) drug therapy
CPT/HCPCS: 36415; 71046; 80048; 80076; 82947; 83605; 83880; 84484; 85025; 85610; 87040; 93005; 94640; 99285; J1650; J2920; J2930

== ENCOUNTER 2022-10-03 09:53 | Emergency (ER) | payer MEDICARE, SELFPAY ==
[2022-10-03 09:56] VITALS: BP 128/69; PULSE 73; RESP 18; TEMP 36.6; O2SAT 93; BMI 22.8
[2022-10-03] MEDS: predniSONE 20 MG TABLET 80 MG PO (10:17)
[2022-10-03 10:26] VITALS: PULSE 76; RESP 16; O2SAT 93
[2022-10-03] MEDS: Albuterol Sulfate (0.083%) 2.5 MG/3 ML VIAL.NEB 5 MG INHALE (10:26)
--- NOTE | 2022-10-03 11:00 | ED_ITS ---
HPI - URI/Sore Throat General Chief Complaint: Upper Respiratory Symptoms Stated Complaint: Breathing Issues Time Seen by Provider: 10/03/22 10:00 Source: patient Mode of arrival: ambulatory Limitations: no limitations History of Present Illness HPI Narrative: 77-year-old male who presents emergency department for evaluation of shortness of breath x2 days. The patient has a history of COPD. He states he has been using his inhalers and albuterol nebulizer which helps but the relief only lasts short period of time. He states that he often gets a flare-up of his COPD during times of high pollen. He denied fever, chills. He states he has had rhinorrhea. He denied sore throat. He has had a cough which is occasionally productive of yellow sputum. He complains of shortness of breath at rest and worse at night he denied increased dyspnea on exertion beyond his baseline. He denied nausea, vomiting, diarrhea. He denied dark stools or bloody stools. He denied myalgias or arthralgias. Related Data Home Medications Medication Instructions Recorded Confirmed aspirin 81 mg tablet,delayed 81 mg PO DAILY 09/21/22 09/21/22 release atorvastatin 80 mg tablet 80 mg PO DAILY 09/21/22 09/21/22 clopidogrel 75 mg tablet 75 mg PO DAILY 09/21/22 09/21/22 fluticasone fur. 100 mcg-umeclid 1 ea inhalation DAILY 09/21/22 09/21/22 62.5 mcg-vilant 25 mcg inhalat.powder (Trelegy Ellipta) lisinopril 2.5 mg tablet 2.5 mg PO DAILY 09/21/22 09/21/22 metformin 500 mg tablet,extended 500 mg PO BID 09/21/22 09/21/22 release 24 hr metoprolol tartrate 50 mg tablet 50 mg PO BID 09/21/22 09/21/22 multivitamin 1 tab PO DAILY 09/21/22 09/21/22 Previous Rx's Medication Instructions Recorded doxycycline monohydrate 100 mg 100 mg PO Q12H #8 caps 09/22/22 capsule guaifenesin 600 mg tablet, 600 mg PO BID #14 tabs 09/22/22 extended release 12 hr (Mucinex) prednisone 20 mg tablet 40 mg PO DAILY #8 tabs 09/22/22 prednisone 10 mg tablet 10 mg PO DIRECTED #60 tabs 10/03/22 Allergies Allergy/AdvReac Type Severity Reaction Status Date / Time No Known Allergies Allergy Verified 09/21/22 12:34 [No Known Allergies*] Review of Systems Review of Systems: Yes all other systems are reviewed and are negative FOR[facility] Past Medical History Medical History (Updated 10/03/22 @ 11:03 by Holden Ferreira MD) Diabetes mellitus HLD (hyperlipidemia) Social History Social History Household Members: Family Household Members Other:: grandson and daughter Housing: Apartment Do you presently have visiting nurse or other home services: No Patient Tobacco Use Status: Current everyday Tobacco user Tobacco use type: Cigarette Cigarette Packs Per Day: 1 Cigarettes Per Day: 20.0 Years Smoked: 60 Second Hand Smoke Exposure: No Advance Directives: Yes Advance Directives Information Provided: Yes Advance Directives on File: No service: Yes Current occupational status: retired Physical Exam Vital Signs: Vital Signs: Last Vital Signs Temp 97.8 F 10/03/22 09:56 Pulse 76 10/03/22 10:26 Resp 16 10/03/22 10:26 BP 128/69 10/03/22 09:56 Pulse Ox 93 10/03/22 09:56 O2 Del Method Room Air 10/03/22 09:56 BMI result Body Mass Index 22.8 Const: Other: Awake, alert, male patient, pleasant, cooperative, does appear to be in mild respiratory distress with pursed lip breathing. He is able to talk in full sentences. HEENT: Head: Yes normal to inspection, Yes normocephalic and Yes atraumatic Ears: external ears normal General nose exam: Normal external nose present Face and sinus: Yes normal facial exam Mouth: Normal oral and palatal mucosa present Throat: Yes posterior oropharynx normal Eyes: General: appearance normal, both eyes and all related structures Pu pils: Equal, round and reactive pupils present Neck: Neck: Yes normal visual inspection, Yes no lymphadenopathy, Yes trachea midline and Yes supple Chest: Chest palpation & inspection: normal inspection of the chest and normal palpation of entire chest wall Resp: Other: Patient has symmetric breath sounds with diffuse wheezing, no rales or rhonchi Effort & Inspection: able to speak in complete sentences Cardio: Rate: regular rate Rhythm: regular rhythm Heart sounds: S1 normal heart sound present, S2 normal heart sound present and no murmurs GI: Inspection: Yes normal to inspection Palpation (GI): Soft to palpation, nontender and no guarding Auscultation: normal bowel sounds : General: Yes no CVA tenderness Back/Spine/Pelvis: Back: no CVA tenderness Skin: General skin exam: no rashes or lesions noted Neuro: Cranial nerves: Yes CN's II-XII intact bilaterally and Yes Equal, round and reactive pupils present Cognition (Neuro): normal cognition Motor exam (neuro): 5/5 motor strength present throughout Extrem: General: Yes normal to inspection Psych: Appearance: grossly normal Speech and movement: Normal speech and movement present Affect: normal affect Attitude: cooperative Thought process: Normal thought process present Thought content: Normal thought content present Medications Administered Discontinued Medications Generic Name Dose Route Start Last Admin Trade Name Piedad PRN Reason Stop Dose Admin Albuterol Sulfate 5 mg 10/03/22 10:12 10/03/22 10:26 Albuterol Sulfate (0.083%) 2.5 Mg/3 Ml Vial.Neb INHALE 10/03/22 10:13 5 mg ONCE ONE Administration Prednisone 80 mg 10/03/22 10:12 10/03/22 10:17 Prednisone 20 Mg Tablet PO 10/03/22 10:13 80 mg ONCE ONE Administration Medical Decision Making Medical Decision Making MDM Narrative: 77-year-old male with a history of COPD who presents emergency department for evaluation of increased shortness of breath x2 days. He does have a cough which is occasionally productive. He states the shortness of breath is worse at night. He states that he has chronic dyspnea on exertion but is no worse than his baseline. Vital signs were unremarkable. He did appear to be in mild respiratory distress and had pursed lip breathing. Patient's lung exam did reveal diffuse wheezing. I ordered prednisone 80 mg orally and albuterol nebulized 5 mg x1. 1110: The patient had significant improvement after the above treatment, repeat lung exam revealed only minimal wheezing, no longer had pursed lip breathing. The patient most likely has COPD exacerbation secondary to environmental exposure to pollen. Patient was given a tapering course of prednisone 60 mg for 5 days then decrease by 1 pill every 2 days. I told the do not think that he needs antibiotics at this time. Was advised to continue his medications as prescribed by his providers, including his inhalers and is albuterol nebulized treatments. He was given printed and verbal instructions discharged home. Differential Diagnosis Differential diagnosis includes was not limited to COPD exacerbation, pneumonia, bronchitis, pneumothorax, Admission/Observation Consideration of admission/observation: Escalation of care including admission/observation considered Discharge Plan Discharge Clinical Impression: Acute exacerbation of chronic obstructive pulmonary disease Patient Disposition: Home, Self-Care Instructions: COPD (Chronic Obstructive Pulmonary Disease) (ED) Additional Instructions: Your symptoms are consistent with a flare-up of your COPD most likely triggered by the high pollen in the air. The pollen is causing inflammation in your breathing tubes which is making your breathing worse and making your albuterol treatments less effective. At this time I do not think that you have pneumonia or bacterial bronchitis in you do not need antibiotics. Continue to use your inhalers and nebulizer as directed by your providers. After you use the Treliogy inhaler rinse your mouth out with warm water several times to help prevent thrush (yeast infection) in your mouth. Take prednisone 10 mg pills, 6 pills for 5 days then decrease by 1 pill every 2 days until you complete the prescription. Follow-up with your doctor in 2 days. Please return to the emergency department if your symptoms get worse or if you develop any symptoms that are concerning to you. Prescriptions: New prednisone 10 mg tablet 10 mg PO DIRECTED Qty: 60 0RF Rx Instructions: see taper instructions Day 1 through 5 take 6 pills, then decrease by 1 pill every 2 days until you complete the prescription No Action multivitamin Tablet 1 tab PO DAILY atorvastatin 80 mg tablet 80 mg PO DAILY clopidogrel 75 mg tablet 75 mg PO DAILY aspirin 81 mg Tablet,Delayed Release (Dr/Ec) 81 mg PO DAILY metoprolol tartrate 50 mg tablet 50 mg PO BID metformin 500 mg tablet extended release 24 hr 500 mg PO BID lisinopril 2.5 mg tablet 2.5 mg PO DAILY Trelegy Ellipta 100-62.5-25 mcg blister with device 1 ea inhalation DAILY doxycycline monohydrate 100 mg Capsule 100 mg PO Q12H Qty: 8 0RF prednisone 20 mg tablet 40 mg PO DAILY Qty: 8 0RF guaifenesin [Mucinex] 600 mg tablet extended release 12hr 600 mg PO BID Qty: 14 0RF Interventions: ED Discharge Assessment Last Done: 10/03/22 11:08 Discharge Date/Time: 10/03/22 11:16
== END 2022-10-03 11:16 | disposition home or self-care (01) ==
PROVIDERS: Emergency Provider Emergency Medicine Emergency Medical Services; PCP Physician Assistant Medical
DX: J44.1 Chronic obstructive pulmonary disease with (acute) exacerbation (principal); R06.02 Shortness of breath; F17.210 Nicotine dependence, cigarettes, uncomplicated; Z71.6 Tobacco abuse counseling; Z79.899 Other long term (current) drug therapy
CPT/HCPCS: 94640; 99284

== ENCOUNTER 2023-03-28 13:23 | Emergency (ER) | payer MEDICARE, SELFPAY ==
--- NOTE | ~2023-03-28 | XR_ITS ---
EXAMINATION: XR CHEST CLINICAL INFORMATION: Shortness of breath. Chest pain. COMPARISON: 09/21/2022. TECHNIQUE: 2 views of the chest were obtained. XR/XR chest 2V FINDINGS/IMPRESSION: Small, patchy retrocardiac density may represent fibrotic change, atelectasis, and/infiltrates, similar compared with 09/21/2022. The right lung appears clear. No effusion or pneumothorax is seen. The heart appears normal in size. Suspect coronary arterial calcification and CABG. Status post median sternotomy. Uncoiled aorta, suggesting hypertension. Mild compression deformities of midthoracic vertebral bodies, unchanged. Status post cholecystectomy.
[2023-03-28 13:26] VITALS: BP 134/65; PULSE 85; RESP 20; TEMP 36.5; O2SAT 90; BMI 21.1
--- NOTE | 2023-03-28 13:26 | ED_ITS ---
HPI - SOB/Dyspnea General Chief Complaint: Dyspnea Stated Complaint: SOB Time Seen by Provider: 03/28/23 14:56 Source: patient Mode of arrival: ambulatory Limitations: no limitations History of Present Illness HPI Narrative: Patient is a 77 year old assigned male at with a history of DM and HTN presenting to the emergency department today with a cough and increased SOB. Patient states that over the last week he has had an increase in SOB and a cough. Patient states that this happened before and steroids helped. Patient denies any dizziness, lightheadedness, abdominal pain, nausea, vomiting, fever, chills, blurry vision, double vision, loss of vision, chest pain, back pain, night sweats, pain with urination, increased urinary frequency, increased urinary urgency, blood in his urine or stool, syncope or a near syncopal episode, recent trauma or falls, bowel incontinence, bladder incontinence, bowel retention, bladder retention, or any other complaints at this time. MD elicited complaint: shortness of breath and cough Onset (ago): week(s) Related Data Home Medications Medication Instructions Recorded Confirmed aspirin 81 mg tablet,delayed 81 mg PO DAILY 09/21/22 09/21/22 release atorvastatin 80 mg tablet 80 mg PO DAILY 09/21/22 09/21/22 clopidogrel 75 mg tablet 75 mg PO DAILY 09/21/22 09/21/22 fluticasone fur. 100 mcg-umeclid 1 ea inhalation DAILY 09/21/22 09/21/22 62.5 mcg-vilant 25 mcg inhalat.powder (Trelegy Ellipta) lisinopril 2.5 mg tablet 2.5 mg PO DAILY 09/21/22 09/21/22 metformin 500 mg tablet,extended 500 mg PO BID 09/21/22 09/21/22 release 24 hr metoprolol tartrate 50 mg tablet 50 mg PO BID 09/21/22 09/21/22 multivitamin 1 tab PO DAILY 09/21/22 09/21/22 Previous Rx's Medication Instructions Recorded doxycycline monohydrate 100 mg 100 mg PO Q12H #8 caps 09/22/22 capsule guaifenesin 600 mg tablet, 600 mg PO BID #14 tabs 09/22/22 extended release 12 hr (Mucinex) prednisone 20 mg tablet 40 mg (2 x 20 mg) PO DAILY #8 tabs 09/22/22 prednisone 10 mg tablet 10 mg PO DIRECTED #60 tabs 10/03/22 doxycycline hyclate 100 mg tablet 100 mg PO BID 7 days #14 tabs 03/28/23 prednisone 20 mg tablet 20 mg PO DAILY 12 days #26 tabs 03/28/23 Allergies Allergy/AdvReac Type Severity Reaction Status Date / Time No Known Allergies Allergy Verified 09/21/22 12:34 [No Known Allergies*] Review of Systems 2 Constitutional: Constitutional: Reports no additional constitutional complaints, Denies chills, Denies fever(s) and Denies night sweats Eyes: Eyes: Reports no additional eye complaints, Denies blurry vision, Denies change in vision, Denies diplopia, Denies eye discharge, Denies loss of vision and Denies eye pain ENT: Denies dizziness Cardiovascular: Cardiovascular: Reports no additional cardiovascular complaints, Denies chest pain, Denies lightheadedness, Denies Loss of Consciousness and Reports dyspnea Respiratory: Respiratory: Reports no additional respiratory complaints, Reports cough and Reports dyspnea Gastrointestinal: Gastrointestinal: Reports no additional gastrointestinal complaints, Denies abdominal pain, Denies melena, Denies hematochezia, Denies change in bowel habits and Denies change in stool character Genitourinary: Genitourinary: Reports no additional male genitourinary complaints, Denies hematuria, Denies oliguria, Denies difficulty urinating, Denies dysuria, Denies urinary frequency, Denies urinary hesitancy, Denies urinary incontinence and Denies urinary urgency Musculoskeletal: Musculoskeletal: Reports no additional musculoskeletal complaints, Denies numbness and Denies tingling Neurologic: Denies dizziness, Denies loss of vision, Denies numbness and Denies tingling Psychiatric: Psychiatric: Reports no additional psychiatric complaints Endocrine: Endocrine: Reports no additional endocrine complaints Hematologic/Lymphatic: Hematologic/Lymphatic: Reports no additional hematologic/lymphatic complaints Allergic/Immunologic: Allergic/Immunologic: Reports no additional allergic/immunologic complaints [facility] Past Medical History Attestation statement: The following information was validated with the patient. Source: old records reviewed and nursing notes reviewed Medical History HLD (hyperlipidemia) Diabetes mellitus Social History Social History Household Members: Family Household Members Other:: grandson and daughter Housing: Apartment Do you presently have visiting nurse or other home services: No Patient Tobacco Use Status: Current everyday Tobacco user Tobacco use type: Cigarette Cigarette Packs Per Day: 1 Cigarettes Per Day: 20.0 Years Smoked: 60 Smoked in Last 30 Days: Yes Second Hand Smoke Exposure: No Use of substances other than those prescribed or required for medical reasons: No Advance Directives: Yes Advance Directives Information Provided: No Advance Directives on File: No service: Yes Current occupational status: retired Physical Exam 2 Vital Signs: Vital Signs: Last Vital Signs Temp 97.7 F 03/28/23 13:26 Pulse 75 03/28/23 14:34 Resp 16 03/28/23 14:34 BP 123/75 03/28/23 14:34 Pulse Ox 92 03/28/23 14:34 O2 Del Method Room Air 03/28/23 14:34 BMI result Body Mass Index 21.1 Const: General: cooperative, no acute distress, alert and awake Nutritional Appearance: well nourished Orientation/consciousness: patient oriented x3 Limitations: no limitations HEENT: Head: Yes normal to inspection and Yes atraumatic Ears: hearing grossly normal bilaterally and external ears normal General nose exam: Normal external nose present, no nasal discharge noted and no epistaxis Face and sinus: Yes normal facial exam, No abrasion and No laceration Mouth: Normal oral and palatal mucosa present, no drooling and no muffled voice Eyes: General: appearance normal, both eyes and all related structures P eriorbital: periorbital findings normal Eyelids: Yes eyelids normal C onjunctivae: conjunctivae normal Pupils: Equal, round and reactive pupils present EOM: EOMs intact bilaterally Neck: Neck: Yes normal visual inspection, Yes full ROM and Yes no lymphadenopathy Chest: Chest palpation & inspection: normal inspection of the chest Resp: Effort & Inspection: normal respiratory effort and able to speak in complete sentences Auscultation: clear to auscultation bilaterally GI: Inspection: Yes normal to inspection Neuro: General: patient oriented x3 and moves all extremities Cranial nerves: Yes Equal, round and reactive pupils present Cognition (Neuro): n ormal cognition Motor exam (neuro): 5/5 motor strength present throughout Sensory Exam: Normal double simultaneous stimulation for sensation C oordination: [id number] test normal Extrem: General: Yes normal to inspection, Yes full ROM and Yes capillary refill normal Psych: Appearance: grossly normal Mental Status: mental status grossly normal Affect: normal affect Attitude: cooperative Thought process: N ormal thought process present Thought content: Normal thought content present Insight: Good insight present (Psych) Course Course Course Narrative: This is a rapid medical exam. Deferred additional HPI, ROS, PE to primary provider. 77 yo male with history of COPD here with complaints of shortness of breath x 2 weeks, cough productive with clear sputum. No fevers/chills/chest pain/leg swelling or leg Will obtain labs, EKG, CXR, viral testing VSS Medical Decision Making Medical Decision Making [facility] Narrative: Patient is a 77 year old assigned male at with a history of DM and HTN presenting to the emergency department today with a cough and SOB. Patient's physical exam was unremarkable. Patient's blood work was unremarkable. Patient's EKG was unremarkable. Patient's chest x-ray showed small patchy retrocardiac density that may represent fibrotic change, atelectasis, and/or infiltrates. I explained my physical exam findings as well as all test results to the patient. I answered all questions asked by the patient. I stressed the importance of the patient taking his medication as prescribed. I stressed the importance of the patient following up with his primary care provider. I stressed the importance of the patient returning to the emergency department immediately if his symptoms were to worsen or if he were to develop any dizziness, shortness of breath, difficulty breathing, chest pain, blurry vision, loss of vision, nausea, vomiting, abdominal pain, fever, chills, back pain, or any other complaints. Patient verbalized agreement and understanding with this treatment plan and discharge. Differential Diagnosis Differential Diagnoses: The differential diagnosis associated with the presentation includes Cough SOB CAP Bronchitis Admission/Observation Consideration of admission/observation: Escalation of care including admission/observation considered Patient would have been admitted to the hospital had his work up had any findings where hospital admission was appropriate and his clinical presentation warranted hospital admission. Lab Data [facility] Lab Attestation statement: I reviewed the patient's lab results. My interpretation of these studies and their corresponding values is that they are grossly normal. 03/28/23 13:37 03/28/23 13:37 Labs: Lab Results 03/28/23 Range/Units 13:37 WBC 10.9 H (4.8-10.8) X10*3/uL RBC 4.44 L (4.60-5.80) X10*6/uL Hgb 14.5 (14.0-18.0) g/dl Hct 43.6 (42.0-52.0) % MCV 98.2 H (80.0-98.0) fL MCH 32.7 (27.0-33.0) pg MCHC 33.3 (31.0-36.0) g/dl RDW 13.8 (11.0-16.0) % Plt Count 261 D (160-400) X10*3/uL MPV 9.2 L (9.4-12.4) fL Immature Gran % (Auto) 0.5 H (0.0-0.4) % Neut % (Auto) 63.8 (45-73) % Lymph % (Auto) 25.7 (20-40) % [place] % (Auto) 6.8 (2-11) % Eos % (Auto) 2.8 (0-4) % Baso % (Auto) 0.4 (0-2) % Lymph # (Auto) 2.8 (1.2-4.9) X10*3/uL [place] # (Auto) 0.7 (0.1-1.2) X10*3/uL Eos # (Auto) 0.3 (0.0-0.4) X10*3/uL Baso # (Auto) 0.0 (0.0-0.2) X10*3/uL Abs Immat Gran (auto) 0.05 H (0.00-0.03) X10*3/uL Absolute Neuts (auto) 7.0 (2.0-8.3) x10*3/uL Absolute Nucleated RBC 0.000 (0.0-0.012) X10*3/uL Nucleated RBC % (auto) 0.0 (0.0-0.2) /100WBC PT 11.2 (11.1-13.3) SEC INR 0.9 (0.9-1.1) Sodium 138 (135-145) mmol/L Potassium 4.3 (3.3-5.1) mmol/L Chloride 100 (96-108) mmol/L Carbon Dioxide 29 (22-29) mmol/L Anion Gap 13 (12-20) BUN 7 L (9-16) mg/dL Creatinine 0.89 (0.5-1.4) mg/dL Estim Creat Clear Calc 62.0 Estimated GFR > 60 Random Glucose 175 H (60-115) mg/dL Calcium 9.4 (8.4-10.2) mg/dL Total Bilirubin 0.4 (0.0-1.0) mg/dL Direct Bilirubin 0.2 (0.0-0.5) mg/dL AST 16 (5-37) U/L ALT 19 (0-40) U/L Alkaline Phosphatase 82 (39-117) U/L Troponin I High Sens 3.5 (<3.5-35.0) ng/L Total Protein 6.5 (6.5-8.0) g/dL Albumin 4.2 (3.5-5.0) g/dL Influenza Type A (PCR) NEGATIVE (Negative) Influenza Type B (PCR) NEGATIVE (Negative) RSV RNA Qual (PCR) NEGATIVE (Negative) SARS-CoV-2 RNA (RT-PCR) NEGATIVE (Negative) Independent Interpretation I performed an independent interpretation of an: EKG and Plain X-Ray Interpretation: My interpretation is in agreement with the radiologist's impression of this imaging study. - EXAMINATION: XR CHEST CLINICAL INFORMATION: Shortness of breath. Chest pain. COMPARISON: 09/21/2022. TECHNIQUE: 2 views of the chest were obtained. XR/XR chest 2V FINDINGS/IMPRESSION: Small, patchy retrocardiac density may represent fibrotic change, atelectasis, and/infiltrates, similar compared with 09/21/2022. The right lung appears clear. No effusion or pneumothorax is seen. The heart appears normal in size. Suspect coronary arterial calcification and CABG. Status post median sternotomy. Uncoiled aorta, suggesting hypertension. Mild compression deformities of midthoracic vertebral bodies, unchanged. Status post cholecystectomy. Dictated By: Rishi Mcqueen Signed By: Electronically signed by Rishi Mcqueen 03/28/23 1621 Vent. 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 Prescription Management I considered prescription management with: Antibiotic (patient prescribed an antibiotic.) Chronic Conditions Patient?s care impacted by: Diabetes and Hypertension Discharge Plan Discharge Clinical Impression: Bronchitis Patient Disposition: Home, Self-Care Instructions: Acute Bronchitis (ED) Additional Instructions: Follow up with your primary care provider. Return to the emergency department immediately if your symptoms worsen or if you develop any dizziness, shortness of breath, difficulty breathing, chest pain, blurry vision, loss of vision, nausea, vomiting, abdominal pain, fever, chills, back pain, or any other complaints. Prescriptions: New prednisone 20 mg tablet 20 mg PO DAILY 12 Days Qty: 26 0RF Rx Instructions: Take 3 tablets for 5 days THEN; Take 2 tablets for 4 days THEN; Take 1 tablet for 3 days doxycycline hyclate 100 mg tablet 100 mg PO BID 7 Days Qty: 14 0RF No Action prednisone 10 mg tablet 10 mg PO DIRECTED Qty: 60 0RF Rx Instructions: see taper instructions Day 1 through 5 take 6 pills, then decrease by 1 pill every 2 days until you complete the prescription multivitamin Tablet 1 tab PO DAILY atorvastatin 80 mg tablet 80 mg PO DAILY clopidogrel 75 mg tablet 75 mg PO DAILY aspirin 81 mg Tablet,Delayed Release (Dr/Ec) 81 mg PO DAILY metoprolol tartrate 50 mg tablet 50 mg PO BID metformin 500 mg tablet extended release 24 hr 500 mg PO BID lisinopril 2.5 mg tablet 2.5 mg PO DAILY Trelegy Ellipta 100-62.5-25 mcg blister with device 1 ea inhalation DAILY doxycycline monohydrate 100 mg Capsule 100 mg PO Q12H Qty: 8 0RF prednisone 20 mg tablet 40 mg PO DAILY Qty: 8 0RF guaifenesin [Mucinex] 600 mg tablet extended release 12hr 600 mg PO BID Qty: 14 0RF Referrals: Rico Figueredo PA [Primary Care Provider] - Interventions: ED Discharge Assessment Last Done: 03/28/23 15:12 Discharge Date/Time: 03/28/23 15:12 Print Language: Icelandic
--- NOTE | 2023-03-28 13:27 | ECG_ITS ---
Test Reason : sob Blood Pressure : / mmHG Vent. 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
[2023-03-28 13:45] LABS: MANUAL DIFF FLAG NO
[2023-03-28 13:46] LABS: Basophils Percent Auto 0.4 % (0-2); Eosinophils Absolute Auto 0.3 X10*3/uL (0.0-0.4); Eosinophils Percent Auto 2.8 % (0-4); Hematocrit 43.6 % (42.0-52.0); Hemoglobin 14.5 g/dl (14.0-18.0); Imm Gran Abs Auto 0.05 X10*3/uL (0.00-0.03); Imm Gran Pct Auto 0.5 % (0.0-0.4); Lymphocytes Absolute Auto 2.8 X10*3/uL (1.2-4.9); Lymphocytes Percent Auto 25.7 % (20-40); Mean Corpuscular HGB Conc 33.3 g/dl (31.0-36.0); Mean Corpuscular Hemoglobin 32.7 pg (27.0-33.0); Mean Corpuscular Volume 98.2 fL (80.0-98.0); Mean Platelet Volume 9.2 fL (9.4-12.4); Monocytes Absolute Auto 0.7 X10*3/uL (0.1-1.2); Monocytes Percent Auto 6.8 % (2-11); Neutrophils Percent Auto 63.8 % (45-73); Platelet Count 261 X10*3/uL (160-400); Red Blood Count 4.44 X10*6/uL (4.60-5.80); Red Cell Distribution Width 13.8 % (11.0-16.0); White Blood Count 10.9 X10*3/uL (4.8-10.8)
[2023-03-28 13:54] LABS: INTERNATIONAL NORM RATIO 0.9 (0.9-1.1); Prothrombin Time 11.2 SEC (11.1-13.3)
[2023-03-28 14:02] LABS: Alanine Aminotransferase 19 U/L (0-40); Albumin Level 4.2 g/dL (3.5-5.0); Alkaline Phosphatase 82 U/L (39-117); Anion Gap 13 (12-20); Aspartate Amino Transferase 16 U/L (5-37); Bilirubin Direct 0.2 mg/dL (0.0-0.5); Bilirubin Total 0.4 mg/dL (0.0-1.0); Blood Urea Nitrogen 7 mg/dL (9-16); Calcium 9.4 mg/dL (8.4-10.2); Carbon Dioxide 29 mmol/L (22-29); Chloride 100 mmol/L (96-108); Estimated Glomerular Filt Rate > 60; Glucose Random 175 mg/dL (60-115); Potassium 4.3 mmol/L (3.3-5.1); Sodium 138 mmol/L (135-145); Total Protein 6.5 g/dL (6.5-8.0)
[2023-03-28 14:10] LABS: Troponin-I High Sensitivity 3.5 ng/L (<3.5-35.0)
[2023-03-28 14:34] VITALS: BP 123/75; PULSE 75; RESP 16; O2SAT 92
[2023-03-28 14:52] LABS: Influenza A PCR NEGATIVE (Negative); Influenza B PCR NEGATIVE (Negative); Resp Syncy Virus RNA Qual PCR NEGATIVE (Negative); SARS COV2 PCR INHOUSE NEGATIVE (Negative)
--- NOTE | 2023-03-28 14:53 | PC.NURSE ---
patient ambulated to xray with steady gait
== END 2023-03-28 15:12 | disposition home or self-care (01) ==
PROVIDERS: Nurse Practitioner Family; Emergency Provider Emergency Medicine Emergency Medical Services; PCP Physician Assistant Medical
DX: J40 Bronchitis, not specified as acute or chronic (principal); R06.02 Shortness of breath; Z20.822 Contact with and (suspected) exposure to COVID-19; Z20.828 Contact with and (suspected) exposure to other viral communicable diseases; E11.9 Type 2 diabetes mellitus without complications; E78.5 Hyperlipidemia, unspecified; F17.210 Nicotine dependence, cigarettes, uncomplicated; Z79.82 Long term (current) use of aspirin; Z79.84 Long term (current) use of oral hypoglycemic drugs
CPT/HCPCS: 0241U; 71046; 80048; 80076; 84484; 85025; 85610; 93005; 99283; 99285

== ENCOUNTER 2023-07-31 15:07 | Emergency (ER) | payer MEDICARE, SELFPAY ==
--- NOTE | ~2023-07-31 | XR_ITS ---
EXAMINATION: XR CHEST CLINICAL INFORMATION: Cough. Shortness of breath. COMPARISON: Chest radiograph dated 03/28/2023. TECHNIQUE: 2 views of the chest were obtained. FINDINGS: There are sternotomy sutures. Heart size is normal. There is calcific atherosclerotic disease of the aorta. There is no consolidation within either lung. There is a curvilinear scar within the left midlung. No pleural effusion. No pneumothorax. No acute osseous abnormality. Degenerative changes of the thoracic spine. There are surgical clips within the right upper quadrant. XR/XR chest 2V IMPRESSION: No acute cardiopulmonary disease.
--- NOTE | 2023-07-31 15:13 | ED.GENADULT ---
HPI - General Adult General Chief complaint: Dyspnea Stated complaint: Difficulty breathing Related Data Home Medications Medication Instructions Recorded Confirmed aspirin 81 mg tablet,delayed 81 mg PO DAILY 09/21/22 09/21/22 release atorvastatin 80 mg tablet 80 mg PO DAILY 09/21/22 09/21/22 clopidogrel 75 mg tablet 75 mg PO DAILY 09/21/22 09/21/22 fluticasone fur. 100 mcg-umeclid 1 ea inhalation DAILY 09/21/22 09/21/22 62.5 mcg-vilant 25 mcg inhalat.powder (Trelegy Ellipta) lisinopril 2.5 mg tablet 2.5 mg PO DAILY 09/21/22 09/21/22 metformin 500 mg tablet,extended 500 mg PO BID 09/21/22 09/21/22 release 24 hr metoprolol tartrate 50 mg tablet 50 mg PO BID 09/21/22 09/21/22 multivitamin 1 tab PO DAILY 09/21/22 09/21/22 Previous Rx's Medication Instructions Recorded doxycycline monohydrate 100 mg 100 mg PO Q12H #8 caps 09/22/22 capsule guaifenesin 600 mg tablet, 600 mg PO BID #14 tabs 09/22/22 extended release 12 hr (Mucinex) prednisone 20 mg tablet 40 mg (2 x 20 mg) PO DAILY #8 tabs 09/22/22 prednisone 10 mg tablet 10 mg PO DIRECTED #60 tabs 10/03/22 doxycycline hyclate 100 mg tablet 100 mg PO BID 7 days #14 tabs 03/28/23 prednisone 20 mg tablet 20 mg PO DAILY 12 days #26 tabs 03/28/23 Allergies Allergy/AdvReac Type Severity Reaction Status Date / Time No Known Allergies Allergy Verified 09/21/22 12:34 [No Known Allergies*] [facility] Past Medical History Medical History HLD (hyperlipidemia) Diabetes mellitus Social History Social History Household Members: Family Household Members Other:: grandson and daughter Housing: Apartment Do you presently have visiting nurse or other home services: No Patient Tobacco Use Status: Current everyday Tobacco user Tobacco use type: Cigarette Cigarette Packs Per Day: 1 Cigarettes Per Day: 20.0 Years Smoked: 60 Second Hand Smoke Exposure: No Advance Directives: No Advance Directives Information Provided: No service: Yes Current occupational status: retired Physical Exam ED Vital Signs: BMI result Body Mass Index 23.4 Course Course Course Narrative: This is an RME: Additional HPI, ROS, PE not included below will be deferred to primary provider. Patient is a 77-year-old male He reports 2 weeks of shortness of breath, cough, rhinorrhea,, progressive worsening. Has history of COPD for which he is prescribed Trellegy. Reports he was last prescribed prednisone approximately 6 or 8 weeks ago. Continues to smoke cigarettes Plan: Viral testing, CXR Medical Decision Making Lab Data 07/31/23 15:27 07/31/23 15:27 Labs: Lab Results 07/31/23 07/31/23 Range/Units 15:27 16:36 WBC 11.4 H (4.8-10.8) X10*3/uL RBC 4.43 L (4.60-5.80) X10*6/uL Hgb 14.9 (14.0-18.0) g/dl Hct 43.3 (42.0-52.0) % MCV 97.7 (80.0-98.0) fL MCH 33.6 H (27.0-33.0) pg MCHC 34.4 (31.0-36.0) g/dl RDW 13.5 (11.0-16.0) % Plt Count 269 (160-400) X10*3/uL MPV 9.0 L (9.4-12.4) fL Immature Gran % (Auto) 0.5 H (0.0-0.4) % Neut % (Auto) 63.5 (45-73) % Lymph % (Auto) 20.9 (20-40) % [place] % (Auto) 9.4 (2-11) % Eos % (Auto) 5.2 H (0-4) % Baso % (Auto) 0.5 (0-2) % Lymph # (Auto) 2.4 (1.2-4.9) X10*3/uL [place] # (Auto) 1.1 (0.1-1.2) X10*3/uL Eos # (Auto) 0.6 H (0.0-0.4) X10*3/uL Baso # (Auto) 0.1 (0.0-0.2) X10*3/uL Abs Immat Gran (auto) 0.06 H (0.00-0.03) X10*3/uL Absolute Neuts (auto) 7.3 (2.0-8.3) x10*3/uL Absolute Nucleated RBC 0.000 (0.0-0.012) X10*3/uL Nucleated RBC % (auto) 0.0 (0.0-0.2) /100WBC Sodium 137 (135-145) mmol/L Potassium 4.8 (3.3-5.1) mmol/L Chloride 101 (96-108) mmol/L Carbon Dioxide 29 (22-29) mmol/L Anion Gap 12 (12-20) BUN 10 (9-16) mg/dL Creatinine 0.86 (0.5-1.4) mg/dL Estim Creat Clear Calc 64.9 Estimated GFR > 60 Random Glucose 100 (60-115) mg/dL Calcium 9.7 (8.4-10.2) mg/dL Total Bilirubin 0.4 (0.0-1.0) mg/dL AST 14 (5-37) U/L ALT 19 (0-40) U/L Alkaline Phosphatase 72 (39-117) U/L B-Natriuretic Peptide 23 (<100) pg/mL Total Protein 6.6 (6.5-8.0) g/dL Albumin 4.3 (3.5-5.0) g/dL Influenza Type A (PCR) NEGATIVE (Negative) Influenza Type B (PCR) NEGATIVE (Negative) RSV RNA Qual (PCR) NEGATIVE (Negative) SARS-CoV-2 RNA (RT-PCR) NEGATIVE (Negative) Discharge Plan Discharge Clinical Impression: Shortness of breath Patient Disposition: Left W/O Completing Treatment Prescriptions: No Action prednisone 10 mg tablet 10 mg PO DIRECTED Qty: 60 0RF Rx Instructions: see taper instructions Day 1 through 5 take 6 pills, then decrease by 1 pill every 2 days until you complete the prescription prednisone 20 mg tablet 20 mg PO DAILY 12 Days Qty: 26 0RF Rx Instructions: Take 3 tablets for 5 days THEN; Take 2 tablets for 4 days THEN; Take 1 tablet for 3 days doxycycline hyclate 100 mg tablet 100 mg PO BID 7 Days Qty: 14 0RF multivitamin Tablet 1 tab PO DAILY atorvastatin 80 mg tablet 80 mg PO DAILY clopidogrel 75 mg tablet 75 mg PO DAILY aspirin 81 mg Tablet,Delayed Release (Dr/Ec) 81 mg PO DAILY metoprolol tartrate 50 mg tablet 50 mg PO BID metformin 500 mg tablet extended release 24 hr 500 mg PO BID lisinopril 2.5 mg tablet 2.5 mg PO DAILY Trelegy Ellipta 100-62.5-25 mcg blister with device 1 ea inhalation DAILY doxycycline monohydrate 100 mg Capsule 100 mg PO Q12H Qty: 8 0RF prednisone 20 mg tablet 40 mg PO DAILY Qty: 8 0RF guaifenesin [Mucinex] 600 mg tablet extended release 12hr 600 mg PO BID Qty: 14 0RF Discharge Date/Time: 07/31/23 18:22
[2023-07-31 15:14] VITALS: BP 110/63; PULSE 83; RESP 22; TEMP 36.6; O2SAT 88; BMI 23.4
[2023-07-31 15:32] LABS: MANUAL DIFF FLAG NO
[2023-07-31 15:37] LABS: Basophils Absolute Auto 0.1 X10*3/uL (0.0-0.2); Basophils Percent Auto 0.5 % (0-2); Eosinophils Absolute Auto 0.6 X10*3/uL (0.0-0.4); Eosinophils Percent Auto 5.2 % (0-4); Hematocrit 43.3 % (42.0-52.0); Hemoglobin 14.9 g/dl (14.0-18.0); Imm Gran Abs Auto 0.06 X10*3/uL (0.00-0.03); Imm Gran Pct Auto 0.5 % (0.0-0.4); Lymphocytes Absolute Auto 2.4 X10*3/uL (1.2-4.9); Lymphocytes Percent Auto 20.9 % (20-40); Mean Corpuscular HGB Conc 34.4 g/dl (31.0-36.0); Mean Corpuscular Hemoglobin 33.6 pg (27.0-33.0); Mean Corpuscular Volume 97.7 fL (80.0-98.0); Monocytes Absolute Auto 1.1 X10*3/uL (0.1-1.2); Monocytes Percent Auto 9.4 % (2-11); Neutrophils Absolute Auto 7.3 x10*3/uL (2.0-8.3); Neutrophils Percent Auto 63.5 % (45-73); Platelet Count 269 X10*3/uL (160-400); Red Blood Count 4.43 X10*6/uL (4.60-5.80); Red Cell Distribution Width 13.5 % (11.0-16.0); White Blood Count 11.4 X10*3/uL (4.8-10.8)
[2023-07-31 15:53] LABS: Alanine Aminotransferase 19 U/L (0-40); Albumin Level 4.3 g/dL (3.5-5.0); Alkaline Phosphatase 72 U/L (39-117); Anion Gap 12 (12-20); Aspartate Amino Transferase 14 U/L (5-37); Bilirubin Total 0.4 mg/dL (0.0-1.0); Blood Urea Nitrogen 10 mg/dL (9-16); Calcium 9.7 mg/dL (8.4-10.2); Carbon Dioxide 29 mmol/L (22-29); Chloride 101 mmol/L (96-108); Creatinine Clr Calc Pharmacy 64.9; Estimated Glomerular Filt Rate > 60; Glucose Random 100 mg/dL (60-115); Potassium 4.8 mmol/L (3.3-5.1); Sodium 137 mmol/L (135-145); Total Protein 6.6 g/dL (6.5-8.0)
[2023-07-31 15:59] LABS: B Type Natriuretic Peptide 23 pg/mL (<100)
[2023-07-31 17:38] LABS: Influenza A PCR NEGATIVE (Negative); Influenza B PCR NEGATIVE (Negative); Resp Syncy Virus RNA Qual PCR NEGATIVE (Negative); SARS COV2 PCR INHOUSE NEGATIVE (Negative)
== END 2023-07-31 18:22 | disposition left against medical advice (07) ==
PROVIDERS: Nurse Practitioner Family; Emergency Provider Emergency Medicine; PCP Physician Assistant Medical
DX: R06.02 Shortness of breath (principal); J44.9 Chronic obstructive pulmonary disease, unspecified; E11.9 Type 2 diabetes mellitus without complications; F17.210 Nicotine dependence, cigarettes, uncomplicated; Z11.52 Encounter for screening for COVID-19; Z20.828 Contact with and (suspected) exposure to other viral communicable diseases
CPT/HCPCS: 0241U; 36415; 71046; 80053; 83880; 85025; 99282; 99283